=== PATIENT | female | born 2000 | race Caucasian/White ===

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

== ENCOUNTER 2021-01-01 23:00 | Emergency (ER) | payer MEDICAID ==
[~2021-01-01] VITALS: Ht 157.5 cm; Wt 90.9 kg
[2021-01-02] MEDS ORDERED: PERCOCET 325 MG1 TA2 PO
[2021-01-02] MEDS ORDERED: PREDNISONE20 MG PO
[2021-01-02 00:37] VITALS: BP 143/88; PULSE 74; TEMP 97.9
== END 2021-01-02 00:37 | disposition home or self-care (01) ==
LOC: COL.ER 23:00
DX: M25.562 Pain in left knee (principal); M79.89 Other specified soft tissue disorders
CPT/HCPCS: J7512

== ENCOUNTER 2021-01-20 17:21 | Emergency (ER) | payer MEDICAID ==
[~2021-01-20] VITALS: Ht 157.5 cm; Wt 90.9 kg
[~2021-01-20 17:21] MED LIST: PERCOCET 325 MG1 TA2 PO; PREDNISONE20 MG PO
[2021-01-20 17:30] VITALS: TEMP 98
[2021-01-20] MEDS ORDERED: NAPROSYN500 MG PO (18:02)
[2021-01-20 18:12] VITALS: BP 105/68; PULSE 74
== END 2021-01-20 18:15 | disposition home or self-care (01) ==
LOC: COL.ER 17:21
DX: M25.562 Pain in left knee (principal)
CPT/HCPCS: J1885

== ENCOUNTER 2021-02-13 14:42 | Emergency (ER) | payer MEDICAID ==
[~2021-02-13] VITALS: Ht 157.5 cm; Wt 100.0 kg
[~2021-02-13 14:42] MED LIST changes: +NAPROSYN500 MG PO
[2021-02-13 14:56] VITALS: TEMP 99.1
[2021-02-13 15:11] LABS: COLLECTION METHOD CLEAN CATCH
[2021-02-13 15:19] LABS: AMORPHOUS CRYSTAL Present /uL; MUCOUS Present /lpf; PH 7 (5-8); SQUAMOUS EPITHELIAL 20-50 /hpf; URINE APPEARANCE Turbid; URINE BACTERIA Rare /hpf; URINE BILIRUBIN Negative (NEGATIVE); URINE BLOOD 3+ (NEGATIVE); URINE COLOR Amber; URINE GLUCOSE Negative (NEGATIVE); URINE KETONE Negative (NEGATIVE); URINE LEUKOCYTE ESTERASE 2+ (NEGATIVE); URINE NITRATE Negative (NEGATIVE); URINE PROTEIN(semi-quant) 2+ (NEGATIVE); URINE RBC >50 /hpf
[2021-02-13] MEDS ORDERED: CEPHALEXIN500 M1 PO (16:39)
[2021-02-13 17:00] VITALS: BP 120/87; PULSE 77
== END 2021-02-13 17:00 | disposition home or self-care (01) ==
LOC: COL.ER 14:42
PROVIDERS: Emergency Medicine
DX: N30.91 Cystitis, unspecified with hematuria (principal); Z32.02 Encounter for pregnancy test, result negative
CPT/HCPCS: J1885

== ENCOUNTER 2021-04-30 19:19 | Emergency (ER) | payer MEDICAID ==
[~2021-04-30] VITALS: Ht 157.5 cm; Wt 90.9 kg
[~2021-04-30 19:19] MED LIST changes: +CEPHALEXIN500 M1 PO
[2021-04-30 19:20] VITALS: TEMP 97.2
[2021-04-30 20:00] LABS: COLLECTION METHOD CLEAN CATCH
[2021-04-30 20:11] LABS: MUCOUS Present /lpf; PH 6 (5-8); URINE APPEARANCE Hazy; URINE BACTERIA Rare /hpf; URINE BILIRUBIN Negative (NEGATIVE); URINE BLOOD Negative (NEGATIVE); URINE COLOR Yellow; URINE GLUCOSE Negative (NEGATIVE); URINE KETONE Trace (NEGATIVE); URINE LEUKOCYTE ESTERASE 2+ (NEGATIVE); URINE NITRATE Negative (NEGATIVE); URINE PROTEIN(semi-quant) Negative (NEGATIVE); URINE RBC 0-2 /hpf; URINE UROBILINOGEN Negative (NEGATIVE)
[2021-04-30 20:25] LABS: TRICYCLIC ANTIDEPRESS URINE NEGATIVE
[2021-04-30 20:35] LABS: BASO % 0.4 % (0.0-2.0); EOS # 0.2 K/mm3 (0.0-0.7); EOS % 2.6 % (0-4.0); GRAN # 5.4 K/mm3 (1.4-6.5); GRAN % 71.7 % (42.2-75.2); HEMATOCRIT 41.1 % (37.0-47.0); HEMOGLOBIN 13.8 g/dl (12.5-16.0); LYMPH # 1.3 K/mm3 (1.2-3.4); LYMPH % 17.6 % (20.0-51.0); MEAN CELL VOLUME 87 fl (80.0-100.0); MEAN CORPUSCULAR HEMOGLOBIN 29 pg (27.0-31.0); MEAN CORPUSCULAR HGB CONC 34 g/dl (33.0-37.0); MEAN PLATELET VOLUME 9.8 fl (7.4-10.4); MONO # 0.6 K/mm3 (0.1-0.6); MONO % 7.2 % (1.7-9.3); PLATELET COUNT 240 K/mm3 (130-400); RED BLOOD COUNT 4.72 M/mm3 (4.10-5.30)
[2021-04-30 20:53] LABS: ALANINE AMINOTRANSFERASE 34 U/L (0-55); ALKALINE PHOSPHATASE 61 U/L (40-150); ANION GAP 12 mmol/L (7-16); AST,SGOT 19 U/L (5-34); BILIRUBIN,TOTAL 0.3 mg/dL (0.2-1.2); BLOOD UREA NITROGEN 9 mg/dL (7-19); CALCIUM 9.2 mg/dL (8.4-10.2); CARBON DIOXIDE 21 mmol/L (22-29); CHLORIDE 106 mmol/L (98-107); CREATININE, serum 0.78 mg/dL (0.57-1.11); GLUCOSE 108 mg/dL (70-99); POTASSIUM 3.6 mmol/L (3.5-4.5); SODIUM 139 mmol/L (136-145); TOTAL PROTEIN 7.4 gm/dL (6.2-8.1)
[2021-04-30 20:55] LABS: ACETAMINOPHEN < 1.0 ug/mL (10-30); ALCOHOL(ethanol),MEDICAL < 10 mg/dL (0-10); SALICYLATE < 5.0 mg/dL (15.0-30.0)
[2021-05-01 02:30] VITALS: BP 157/81; PULSE 80
== END 2021-05-01 02:30 | disposition home or self-care (01) ==
LOC: COL.ER 19:19
PROVIDERS: Nurse Practitioner
DX: T37.3X2A Poisoning by other antiprotozoal drugs, intentional self-harm, initial encounter (principal); T39.312A Poisoning by propionic acid derivatives, intentional self-harm, initial encounter

== ENCOUNTER 2021-12-11 02:49 | Emergency (ER) | payer MEDICAID ==
[~2021-12-11] VITALS: Ht 157.5 cm; Wt 102.3 kg
[2021-12-11 02:54] VITALS: TEMP 98.4
[2021-12-11 06:41] LABS: ALBUMIN 3.5 gm/dL (3.5-5.0); BILIRUBIN,TOTAL 1.1 mg/dL (0.2-1.2); CALCIUM 8.4 mg/dL (8.4-10.2); CREATININE, serum 0.72 mg/dL (0.57-1.11); POTASSIUM 4.1 mmol/L (3.5-4.5); TOTAL PROTEIN 7.2 gm/dL (6.2-8.1)
[2021-12-11 06:44] LABS: BASO % 0.2 % (0.0-2.0); EOS # 0.1 K/mm3 (0.0-0.7); EOS % 0.8 % (0.0-4.0); GRAN # 7.2 K/mm3 (1.4-6.5); GRAN % 86.2 % (42.2-75.2); HEMATOCRIT 41.8 % (37.0-47.0); HEMOGLOBIN 13.7 g/dl (12.5-16.0); LYMPH # 0.7 K/mm3 (1.2-3.4); LYMPH % 8.2 % (20.0-51.0); MEAN CELL VOLUME 89 fl (80.0-100.0); MEAN CORPUSCULAR HEMOGLOBIN 29 pg (27-31); MEAN CORPUSCULAR HGB CONC 33 g/dl (33.0-37.0); MEAN PLATELET VOLUME 9.4 fl (7.4-10.4); MONO # 0.4 K/mm3 (0.1-0.6); MONO % 4.2 % (1.7-9.3); PLATELET COUNT 243 K/mm3 (130-400); RED BLOOD COUNT 4.68 M/mm3 (4.10-5.30); REDCELL DISTRIBUTION WIDTH-CV 13.1 % (11.5-14.5)
[2021-12-11] MEDS ORDERED: ZOFRAN ODT4 MG PO (06:45)
[2021-12-11] MEDS ORDERED: NORCO 325 MG-51 TAB PO (06:49)
[2021-12-11 07:04] VITALS: BP 117/77; PULSE 117
== END 2021-12-11 07:08 | disposition home or self-care (01) ==
LOC: COL.ER 02:49
PROVIDERS: Personal Emergency Response Attendant
DX: R11.2 Nausea with vomiting, unspecified (principal); R10.13 Epigastric pain; R19.7 Diarrhea, unspecified; R91.1 Solitary pulmonary nodule
CPT/HCPCS: Q9967

== ENCOUNTER 2021-12-15 09:22 | Emergency (ER) | payer MEDICAID ==
[~2021-12-15] VITALS: Ht 157.5 cm; Wt 100.0 kg
[~2021-12-15 09:22] MED LIST changes: +NORCO 325 MG-51 TAB PO; +ZOFRAN ODT4 MG PO
[2021-12-15 10:54] VITALS: TEMP 97.9
[2021-12-15] MEDS ORDERED: IMODIUM 2MG CAPS2 MG PO (11:04)
[2021-12-15 14:20] LABS: HEMATOCRIT 39.2 % (37.0-47.0); HEMOGLOBIN 13.1 g/dl (12.5-16.0); MEAN CELL VOLUME 87 fl (80.0-100.0); MEAN CORPUSCULAR HEMOGLOBIN 29 pg (27-31); MEAN CORPUSCULAR HGB CONC 33 g/dl (33.0-37.0); PLATELET COUNT 233 K/mm3 (130-400); RED BLOOD COUNT 4.51 M/mm3 (4.10-5.30); REDCELL DISTRIBUTION WIDTH-CV 12.7 % (11.5-14.5)
[2021-12-15 14:37] LABS: ALBUMIN 3.4 gm/dL (3.5-5.0); BILIRUBIN,TOTAL 1.1 mg/dL (0.2-1.2); CALCIUM 8.7 mg/dL (8.4-10.2); CREATININE, serum 0.71 mg/dL (0.57-1.11); POTASSIUM 3.4 mmol/L (3.5-4.5)
[2021-12-15 15:28] LABS: BAND 12 % (0-10); EOSINOPHIL 4 % (0-4); LYMPHOCYTE 42 % (20.0-51.0); NEUTROPHILS 33 % (42.0-75.2)
[2021-12-15 15:29] LABS: PLATELET ESTIMATE NORMAL (NORMAL)
[2021-12-15] MEDS ORDERED: ZOFRAN ODT4 MG PO (16:17)
[2021-12-15 16:43] VITALS: BP 120/70; PULSE 78
== END 2021-12-15 16:44 | disposition home or self-care (01) ==
LOC: COL.ER 09:22
PROVIDERS: Nurse Practitioner
DX: R10.13 Epigastric pain (principal); Z32.02 Encounter for pregnancy test, result negative
CPT/HCPCS: J2270; J2550; J7030

== ENCOUNTER 2021-12-31 05:31 | Emergency (ER) | payer MEDICAID ==
[~2021-12-31] VITALS: Ht 157.5 cm; Wt 90.9 kg
[~2021-12-31 05:31] MED LIST changes: +IMODIUM 2MG CAPS2 MG PO
[2021-12-31 05:36] VITALS: TEMP 97.5
[2021-12-31 06:05] LABS: STREP SCREEN NEGATIVE
[2021-12-31 06:39] VITALS: BP 132/78; PULSE 90
== END 2021-12-31 06:43 | disposition home or self-care (01) ==
LOC: COL.ER 05:31
PROVIDERS: Personal Emergency Response Attendant
DX: J02.8 Acute pharyngitis due to other specified organisms (principal); Z20.822 Contact with and (suspected) exposure to COVID-19
CPT/HCPCS: J1100